=== PATIENT | male | born 1960 | race Caucasian/White ===

== ENCOUNTER 2017-01-12 14:05 | Emergency (ER) | payer MEDICAID | END 2017-01-12 15:32 | disposition home or self-care (01) | LOC: D.ER 14:05 | DX: M25.561 Pain in right knee (principal); M25.461 Effusion, right knee; I10 Essential (primary) hypertension; J45.909 Unspecified asthma, uncomplicated ==

== ENCOUNTER 2017-08-30 21:04 | Inpatient (IN) | payer MEDICAID ==
[~2017-08-30] VITALS: Ht 172.7 cm; Wt 86.3 kg
--- NOTE | ~2017-08-30 | OP ---
PATIENT NAME: CHI GARY MEDICAL RECORD: [id number] :62 LOCATION:D.M2 D.2123 ADMISSION DATE:08/31/17 SURGEON: CHIOMA GUSMAN MD DATE OF OPERATION: 09/03/2017 DATE OF OPERATION: 09/03/2017 PREOPERATIVE DIAGNOSES: 1. Need for IV access. 2. Ocqvs-qh-ldpzbjc kidney failure. 3. Diabetes mellitus. 4. Pyelonephritis. POSTOPERATIVE DIAGNOSES: 1. Need for IV access. 2. Ybqvp-ky-yfjeyal kidney failure. 3. Diabetes mellitus. 4. Pyelonephritis. PROCEDURE: Left subclavian vein triple-lumen central venous line placement. SURGEON: Chioma Gusman MD REPORT OF PROCEDURE: The patient's left chest was prepped and draped in sterile fashion, 5 mL of 1% lidocaine was infused into the subcutaneous tissues. A needle was used to cannulate the left subclavian vein and a guidewire was advanced with ease. Over this wire, a dilator was placed followed by the triple-lumen catheter. The catheter aspirated nonpulsatile dark blood and flushed easily in all 3 ports. This was sutured into place with 3-0 silk ties and dressed appropriately. COMPLICATIONS: None. CONDITION: Stable. ANESTHESIA: Local. BLOOD LOSS: Minimal. Procedure done at the bedside. TRANSINT:[id number] Voice Confirmation ID: [id number] DOCUMENT ID: [id number] CHIOMA GUSMAN MD CC: [id number] DICTATION DATE: 09/03/17 1407 SPECIAL NEEDS TEACHER: 09/03/17 1610 ADM IN [place] [id number] [place] [address]
[2017-08-30 22:06] LABS: BASOPHILS 0.1 % (0-2); EOSINOPHILS 0 % (0-7); HEMATOCRIT 50.4 % (42.0-54.0); HEMOGLOBIN 17.5 g/dL (13.5-17.5); IMMATURE GRANULOCYTES 0.4 % (0-5); LYMPHOCYTES 7.8 % (15-50); MCHC 34.7 g/dL (31.0-37.0); MCV 86.3 fL (80.0-100.0); MONOCYTES 7.8 % (2-11); NEUTROPHILS 83.9 % (40-80); PLATELET COUNT 151 10x3/uL (130-400); RBC 5.84 10x6/uL (4.20-6.10); RDW 14.8 % (11.5-14.5); WBC 16.4 10x3/uL (4.8-10.8)
[2017-08-30 22:11] LABS: KETONE - SERUM NEGATIVE (NEGATIVE)
[2017-08-30 22:18] LABS: ALKALINE PHOSPHATASE 85 U/L (46-116); ALT (SGPT) 25 U/L (10-68); BILIRUBIN - TOTAL 1.11 mg/dL (0.2-1.3); CALC OSMOLALITY 295 mosm/kg (275-300); CALCIUM 8.8 mg/dL (8.5-10.1); CARBON DIOXIDE 24.7 mmol/L (21.0-32.0); CHLORIDE - SERUM 93 mmol/L (98-107); CREATININE - SERUM 3.9 mg/dL (0.6-1.3); GLUCOSE 341 mg/dL (74-106); POTASSIUM - SERUM 3.5 mmol/L (3.5-5.1); PROTEIN - SERUM 8.8 g/dL (6.4-8.2); SODIUM 132 mmol/L (136-145); UREA NITROGEN 64 mg/dL (7-18); eGFR NON AFRICAN AMERICAN 17 mL/min (90-120)
[2017-08-31 02:40] LABS: APPEARANCE CLOUDY (CLEAR); BILIRUBIN NEGATIVE (NEGATIVE); COLOR DK YELLOW (YELLOW); GLUCOSE 500 mg/dL (NEGATIVE); KETONE NEGATIVE (NEGATIVE); NITRITE NEGATIVE (NEGATIVE); PROTEIN 3+ mg/dL (NEGATIVE); SPECIFIC GRAVITY 1.025 (1.005-1.020); UROBILINOGEN NORMAL (NORMAL)
[2017-08-31 02:42] LABS: BACTERIA MANY /hpf (NONE SEEN); EPITHELIAL CELLS 0-5 /hpf (0-5); GRANULAR CAST OCC /lpf (NONE SEEN); HYALINE CAST 0-5 /lpf (NONE SEEN); RED CELLS - URINE 0-5 /hpf (0-5)
[2017-08-31 04:00] VITALS: BP 118/83
[2017-08-31 05:00] VITALS: BP 118/83; BMI 28.3
[2017-08-31 11:01] VITALS: BP 136/92
[2017-08-31 12:43] LABS: ALBUMIN 2.3 g/dL (3.4-5.0); ANION GAP 20.4 mmol/L (8-16); BILIRUBIN - TOTAL 0.56 mg/dL (0.2-1.3); CALCIUM 7.4 mg/dL (8.5-10.1); CREATININE - SERUM 4.7 mg/dL (0.6-1.3); POTASSIUM - SERUM 3.4 mmol/L (3.5-5.1); PROTEIN - SERUM 7.2 g/dL (6.4-8.2)
[2017-08-31 12:55] VITALS: BMI 28.2
[2017-08-31 13:41] VITALS: BP 133/79
[2017-08-31 17:40] VITALS: BP 113/78
[2017-08-31 19:00] VITALS: BP 144/90
[2017-09-01 04:00] VITALS: BP 153/96
[2017-09-01 05:11] LABS: BASOPHILS 0 % (0-2); EOSINOPHILS 0 % (0-7); IMMATURE GRANULOCYTES 0.9 % (0-5); MCH 29.1 pg (26.0-34.0); MCHC 34.6 g/dL (31.0-37.0); MEAN PLATELET VOLUME 11.1 fL (7.4-10.4); MONOCYTES 8.3 % (2-11); NEUTROPHILS 84.8 % (40-80); RDW 15.1 % (11.5-14.5)
[2017-09-01 05:16] LABS: HEMATOCRIT 38.1 % (42.0-54.0); HEMOGLOBIN 13.2 g/dL (13.5-17.5); MCV 84.1 fL (80.0-100.0); PLATELET COUNT 109 10x3/uL (130-400); RBC 4.53 10x6/uL (4.20-6.10); WBC 9.3 10x3/uL (4.8-10.8)
[2017-09-01 05:34] LABS: HEMOGLOBIN A1C 9.6 % (4.8-6.0)
[2017-09-01 06:06] LABS: CALC OSMOLALITY 299 mosm/kg (275-300); CALCIUM 7.2 mg/dL (8.5-10.1); CARBON DIOXIDE 16.7 mmol/L (21.0-32.0); CHLORIDE - SERUM 102 mmol/L (98-107); CHOL - HDL RATIO 12.3 ratio (2.3-4.9); CREATININE - SERUM 5.6 mg/dL (0.6-1.3); GLUCOSE 152 mg/dL (74-106); HDL CHOLESTEROL 11 mg/dL (32-96); LDL CHOLESTEROL 62 mg/dL (0-100); LDL-HDL RATIO 5.6 ratio (1.5-3.5); POTASSIUM - SERUM 3.2 mmol/L (3.5-5.1); PROTEIN - SERUM 6.9 g/dL (6.4-8.2); SODIUM 137 mmol/L (136-145); TRIGLYCERIDE 310 mg/dL (30-200); UREA NITROGEN 77 mg/dL (7-18); eGFR NON AFRICAN AMERICAN 11 mL/min (90-120)
[2017-09-01 06:08] LABS: CHOLESTEROL, TOTAL 135 mg/dL (0-200); CKMB 0.6 U/L (0.0-3.6); CREATINE KINASE 856 UL (21-232)
[2017-09-01 09:37] VITALS: BP 135/91
[2017-09-01 11:41] VITALS: BP 122/86
[2017-09-01 16:01] VITALS: BP 118/76
[2017-09-01 22:04] VITALS: BP 120/79
[2017-09-01 23:08] LABS: CREATININE - URINE 86.8 mg/dL (30-125)
[2017-09-02 01:15] VITALS: BP 151/84
[2017-09-02 05:34] LABS: BASOPHILS 0.2 % (0-2); EOSINOPHILS 0.2 % (0-7); HEMOGLOBIN 12.4 g/dL (13.5-17.5); IMMATURE GRANULOCYTES 0.6 % (0-5); LYMPHOCYTES 9.2 % (15-50); MCHC 34.4 g/dL (31.0-37.0); MCV 84.1 fL (80.0-100.0); MEAN PLATELET VOLUME 10.8 fL (7.4-10.4); MONOCYTES 7.4 % (2-11); NEUTROPHILS 82.4 % (40-80); PLATELET COUNT 130 10x3/uL (130-400); RBC 4.28 10x6/uL (4.20-6.10); RDW 15.5 % (11.5-14.5)
[2017-09-02 05:35] LABS: WBC 6.7 10x3/uL (4.8-10.8)
[2017-09-02 05:43] LABS: ANION GAP 22.4 mmol/L (8-16); CALCIUM 7.4 mg/dL (8.5-10.1); CARBON DIOXIDE 17.4 mmol/L (21.0-32.0); CREATININE - SERUM 5.8 mg/dL (0.6-1.3); VANCOMYCIN - TROUGH 19.6 ug/mL (10.0-20.0)
[2017-09-02 05:48] LABS: POTASSIUM - SERUM 2.8 mmol/L (3.5-5.1)
[2017-09-02 05:58] VITALS: BP 149/81
[2017-09-02 07:48] VITALS: BP 140/81
[2017-09-02 10:52] VITALS: BP 125/71
[2017-09-02 17:59] VITALS: Ht 172.7 cm; Wt 86.3 kg
[2017-09-02 19:00] VITALS: BP 153/88
[2017-09-03 04:00] VITALS: BP 159/80
[2017-09-03 11:37] VITALS: BP 141/80
[2017-09-03 12:15] LABS: BASOPHILS 0.2 % (0-2); EOSINOPHILS 1.3 % (0-7); HEMATOCRIT 35.9 % (42.0-54.0); HEMOGLOBIN 12.5 g/dL (13.5-17.5); IMMATURE GRANULOCYTES 0.8 % (0-5); LYMPHOCYTES 12.3 % (15-50); MCH 29.4 pg (26.0-34.0); MCHC 34.8 g/dL (31.0-37.0); MCV 84.5 fL (80.0-100.0); MEAN PLATELET VOLUME 10.9 fL (7.4-10.4); MONOCYTES 8.9 % (2-11); NEUTROPHILS 76.5 % (40-80); RBC 4.25 10x6/uL (4.20-6.10); RDW 15.6 % (11.5-14.5); WBC 5.2 10x3/uL (4.8-10.8)
[2017-09-03 12:19] LABS: PLATELET COUNT 171 10x3/uL (130-400)
[2017-09-03 12:29] LABS: ANION GAP 18.6 mmol/L (8-16); CALCIUM 7.8 mg/dL (8.5-10.1); CREATININE - SERUM 5.1 mg/dL (0.6-1.3); VANCOMYCIN - RANDOM 7.4 ug/mL (10.0-20.0)
[2017-09-03 12:32] LABS: POTASSIUM - SERUM 2.6 mmol/L (3.5-5.1)
[2017-09-03 15:37] VITALS: BP 145/73
[2017-09-03 19:00] VITALS: BP 116/85
[2017-09-04 04:00] VITALS: BP 161/92
[2017-09-04 06:32] LABS: BASOPHILS 0.2 % (0-2); EOSINOPHILS 1.7 % (0-7); HEMATOCRIT 35.7 % (42.0-54.0); HEMOGLOBIN 12.2 g/dL (13.5-17.5); IMMATURE GRANULOCYTES 0.4 % (0-5); MCH 29.2 pg (26.0-34.0); MCHC 34.2 g/dL (31.0-37.0); MCV 85.4 fL (80.0-100.0); MEAN PLATELET VOLUME 10.9 fL (7.4-10.4); MONOCYTES 9.3 % (2-11); NEUTROPHILS 73.4 % (40-80); PLATELET COUNT 208 10x3/uL (130-400); RBC 4.18 10x6/uL (4.20-6.10); RDW 15.8 % (11.5-14.5); WBC 4.6 10x3/uL (4.8-10.8)
[2017-09-04 06:44] LABS: ANION GAP 17.1 mmol/L (8-16); CALCIUM 7.8 mg/dL (8.5-10.1); CARBON DIOXIDE 21.9 mmol/L (21.0-32.0); CREATININE - SERUM 4.5 mg/dL (0.6-1.3); VANCOMYCIN - RANDOM 17.8 ug/mL (10.0-20.0)
[2017-09-04 07:00] VITALS: BP 136/58
[2017-09-04 21:39] VITALS: BP 145/83
[2017-09-05 03:30] VITALS: BP 148/76
[2017-09-05 06:23] LABS: BASOPHILS 0.6 % (0-2); EOSINOPHILS 3.3 % (0-7); HEMATOCRIT 35.6 % (42.0-54.0); HEMOGLOBIN 11.8 g/dL (13.5-17.5); IMMATURE GRANULOCYTES 0.6 % (0-5); LYMPHOCYTES 21.1 % (15-50); MCH 28.8 pg (26.0-34.0); MCHC 33.1 g/dL (31.0-37.0); MCV 86.8 fL (80.0-100.0); MEAN PLATELET VOLUME 10.6 fL (7.4-10.4); MONOCYTES 9.9 % (2-11); NEUTROPHILS 64.5 % (40-80); PLATELET COUNT 245 10x3/uL (130-400); WBC 4.9 10x3/uL (4.8-10.8)
[2017-09-05 06:42] LABS: CALCIUM 7.5 mg/dL (8.5-10.1); CARBON DIOXIDE 23.3 mmol/L (21.0-32.0); CREATININE - SERUM 3.5 mg/dL (0.6-1.3)
[2017-09-05 06:43] LABS: ANION GAP 16.7 mmol/L (8-16)
[2017-09-05 08:56] VITALS: BP 153/64
[2017-09-05 12:15] VITALS: BP 144/65
[2017-09-05 13:12] LABS: OSMOLALITY - URINE 374 (())
[2017-09-05 16:19] VITALS: BP 119/75
[2017-09-05 19:00] VITALS: BP 166/90
[2017-09-06 04:00] VITALS: BP 191/95
[2017-09-06 06:52] LABS: BASOPHILS 0.3 % (0-2); EOSINOPHILS 3.1 % (0-7); HEMATOCRIT 37.4 % (42.0-54.0); HEMOGLOBIN 12.2 g/dL (13.5-17.5); LYMPHOCYTES 23.2 % (15-50); MCH 28.6 pg (26.0-34.0); MCHC 32.6 g/dL (31.0-37.0); MCV 87.8 fL (80.0-100.0); MEAN PLATELET VOLUME 10.2 fL (7.4-10.4); MONOCYTES 8.6 % (2-11); NEUTROPHILS 63.8 % (40-80); PLATELET COUNT 279 10x3/uL (130-400); RBC 4.26 10x6/uL (4.20-6.10); RDW 15.7 % (11.5-14.5); WBC 5.7 10x3/uL (4.8-10.8)
[2017-09-06 07:30] LABS: CALCIUM 7.8 mg/dL (8.5-10.1); CARBON DIOXIDE 22.3 mmol/L (21.0-32.0); POTASSIUM - SERUM 3.3 mmol/L (3.5-5.1)
[2017-09-06 08:25] VITALS: BP 167/82
[2017-09-06 12:23] VITALS: BP 171/94
[2017-09-06 15:16] VITALS: BP 137/80
[2017-09-06 22:25] VITALS: BP 102/69; BP 124/71
[2017-09-07 01:27] VITALS: BP 129/85
[2017-09-07 03:12] LABS: IMMUNOGLOBULIN E 146 IU/mL (0-100)
[2017-09-07 06:23] LABS: ANION GAP 14.6 mmol/L (8-16); CALCIUM 7.6 mg/dL (8.5-10.1); CREATININE - SERUM 2.6 mg/dL (0.6-1.3); POTASSIUM - SERUM 3.6 mmol/L (3.5-5.1); VANCOMYCIN - RANDOM 3.9 ug/mL (10.0-20.0)
[2017-09-07 06:25] LABS: BASOPHILS 0.4 % (0-2); EOSINOPHILS 2.9 % (0-7); HEMATOCRIT 36.9 % (42.0-54.0); HEMOGLOBIN 12.1 g/dL (13.5-17.5); IMMATURE GRANULOCYTES 1.3 % (0-5); LYMPHOCYTES 21.7 % (15-50); MCH 28.9 pg (26.0-34.0); MCHC 32.8 g/dL (31.0-37.0); MCV 88.1 fL (80.0-100.0); MEAN PLATELET VOLUME 10.1 fL (7.4-10.4); MONOCYTES 6.5 % (2-11); NEUTROPHILS 67.2 % (40-80); PLATELET COUNT 262 10x3/uL (130-400); RBC 4.19 10x6/uL (4.20-6.10); RDW 15.3 % (11.5-14.5); WBC 5.2 10x3/uL (4.8-10.8)
[2017-09-07 06:28] VITALS: BP 179/84
[2017-09-07 08:12] VITALS: BP 181/77
[2017-09-07 12:15] VITALS: BP 189/95
[2017-09-07 16:42] VITALS: BP 171/84
[2017-09-07 20:00] VITALS: BP 184/86
[2017-09-08] VITALS: BP 140/70
[2017-09-08 04:00] VITALS: BP 150/70
[2017-09-08 10:26] VITALS: BP 168/79
[2017-09-08 13:11] VITALS: BP 169/91
[2017-09-08 13:24] LABS: BASOPHILS 0.5 % (0-2); EOSINOPHILS 1.5 % (0-7); HEMATOCRIT 36.2 % (42.0-54.0); HEMOGLOBIN 11.6 g/dL (13.5-17.5); IMMATURE GRANULOCYTES 1.5 % (0-5); LYMPHOCYTES 27.2 % (15-50); MCH 28.4 pg (26.0-34.0); MCV 88.7 fL (80.0-100.0); MEAN PLATELET VOLUME 9.5 fL (7.4-10.4); MONOCYTES 5.6 % (2-11); NEUTROPHILS 63.7 % (40-80); PLATELET COUNT 246 10x3/uL (130-400); RBC 4.08 10x6/uL (4.20-6.10)
[2017-09-08 13:30] LABS: WBC 6.6 10x3/uL (4.8-10.8)
[2017-09-08 13:34] LABS: ANION GAP 13.2 mmol/L (8-16); CALCIUM 7.7 mg/dL (8.5-10.1); CARBON DIOXIDE 26.2 mmol/L (21.0-32.0); CREATININE - SERUM 2.3 mg/dL (0.6-1.3); POTASSIUM - SERUM 3.4 mmol/L (3.5-5.1)
[2017-09-08 21:38] VITALS: BP 160/81
[2017-09-09 01:44] VITALS: BP 151/83
[2017-09-09 05:40] VITALS: BP 153/76
[2017-09-09 05:43] LABS: BASOPHILS 0.4 % (0-2); EOSINOPHILS 2.6 % (0-7); HEMATOCRIT 34.6 % (42.0-54.0); HEMOGLOBIN 11.3 g/dL (13.5-17.5); IMMATURE GRANULOCYTES 1.7 % (0-5); MCH 28.8 pg (26.0-34.0); MCHC 32.7 g/dL (31.0-37.0); MEAN PLATELET VOLUME 9.3 fL (7.4-10.4); MONOCYTES 5.3 % (2-11); PLATELET COUNT 228 10x3/uL (130-400); RBC 3.93 10x6/uL (4.20-6.10); RDW 14.8 % (11.5-14.5); WBC 5.4 10x3/uL (4.8-10.8)
[2017-09-09 05:59] LABS: ANION GAP 10.7 mmol/L (8-16); CALCIUM 7.6 mg/dL (8.5-10.1); CARBON DIOXIDE 26.5 mmol/L (21.0-32.0); CREATININE - SERUM 2.2 mg/dL (0.6-1.3); POTASSIUM - SERUM 3.2 mmol/L (3.5-5.1)
[2017-09-09] MEDS ORDERED: FLOMAX0.4 MG PO (11:59)
[2017-09-09] MEDS ORDERED: TESSALON PERLE100 MG PO (11:59)
[2017-09-09] MEDS ORDERED: MUCINEX DM ER1 EAC1 PO (11:59)
[2017-09-09 12:02] VITALS: BP 188/113
[2017-09-09] MEDS ORDERED: FLORAJEN3 CAPS460 MG PO (12:05)
[2017-09-09] MEDS ORDERED: ALBUTEROL2.5 MG/3 M UPD (12:05)
[2017-09-09] MEDS ORDERED: AMPICILLIN TRI500 MG PO (12:05)
== END 2017-09-09 17:41 | DRG 871 ==
LOC: D.ER 21:04 → D.M2 08-31 01:28
PROVIDERS: Family Medicine; Internal Medicine Nephrology; Internal Medicine Pulmonary Disease; Physician Assistant Medical
PROC: 0T9B70Z Drainage of Bladder with Drainage Device, Via Natural or Artificial Opening (ICD-10-PCS; principal; 2017-09-03)
PROC: 02HV33Z Insertion of Infusion Device into Superior Vena Cava, Percutaneous Approach (ICD-10-PCS; 2017-09-03)
DX: A41.9 Sepsis, unspecified organism (principal); N17.0 Acute kidney failure with tubular necrosis; N39.0 Urinary tract infection, site not specified; E87.1 Hypo-osmolality and hyponatremia; N13.30 Unspecified hydronephrosis; J98.11 Atelectasis; R65.20 Severe sepsis without septic shock; B95.2 Enterococcus as the cause of diseases classified elsewhere; E87.6 Hypokalemia; E86.0 Dehydration; E11.22 Type 2 diabetes mellitus with diabetic chronic kidney disease; N18.9 Chronic kidney disease, unspecified; D69.6 Thrombocytopenia, unspecified; K80.20 Calculus of gallbladder without cholecystitis without obstruction

== ENCOUNTER 2020-09-24 11:52 | Emergency (ER) | payer MEDICAID ==
[~2020-09-24] VITALS: Ht 172.7 cm; Wt 70.0 kg
[~2020-09-24 11:52] MED LIST: ALBUTEROL2.5 MG/3 M UPD; AMPICILLIN TRI500 MG PO; FLOMAX0.4 MG PO; FLORAJEN3 CAPS460 MG PO; MUCINEX DM ER1 EAC1 PO; TESSALON PERLE100 MG PO
[2020-09-24 11:57] VITALS: Ht 172.7 cm; Wt 70.0 kg
[2020-09-24] MEDS ORDERED: ZANAFLEX4 MG PO (16:59)
[2020-09-24] MEDS ORDERED: DICLOFENAC SODI50 MG PO (16:59)
[2020-09-24 18:24] VITALS: BP 149/83
== END 2020-09-24 18:27 | disposition home or self-care (01) ==
LOC: D.ER 11:52
DX: M25.561 Pain in right knee (principal); M23.8X1 Other internal derangements of right knee; E11.9 Type 2 diabetes mellitus without complications; J45.909 Unspecified asthma, uncomplicated